=== PATIENT | male | born 1980 | race Two or more races ===

== ENCOUNTER → 2016-03-17 | Outpatient (CLI) | payer OTHER ==
--- NOTE | 2016-03-17 16:32 | DX ---
Abdominal series 3 views 1357 hours. History: Abdominal pain more prominent toward the right side. Findings: There is a moderate amount of stool within the ascending colon with mild to moderate amount of residual stool in the descending colon. There are no significantly dilated loops of bowel. There are no air-fluid levels or free air. No masses are seen or significant calcifications. Osseous struct ures appear to be intact. PA chest x-ray: No active cardiopulmonary disease seen. The patient is missing left first rib. Impression: 1. Mild to moderate constipation. 2. No active cardiopulmonary disease in the chest.
== END ==
LOC: CIMAGING 13:22
PROVIDERS: ATTEND Family Medicine
DX: R10.31 Right lower quadrant pain (principal); K59.00 Constipation, unspecified; M95.4 Acquired deformity of chest and rib
CPT/HCPCS: 74022-PO

== ENCOUNTER → 2016-06-23 | Outpatient (CLI) | payer OTHER | LOC: CIMAGING 11:56 | PROVIDERS: ATTEND Family Medicine | DX: R20.2 Paresthesia of skin (principal); M79.675 Pain in left toe(s) | CPT/HCPCS: 73620-PO ==